=== PATIENT | female | born 1950 | race Caucasian/White ===

== ENCOUNTER 2025-03-22 09:15 | Outpatient (CLI) | payer MEDICARE, SELFPAY ==
--- NOTE | ~2025-03-22 | CT_ITS ---
EXAM/PROCEDURE: [email or web address] HISTORY: Preoperative planning COMPARISON: None available. TECHNIQUE: CT right knee for preoperative planning. Conformis protocol use. FINDINGS: Moderate to severe tricompartmental osteoarthritic appearing degenerative changes with no acute or aggressive bony lesions seen. Scattered strandy subcutaneous infiltrative changes are present most prevalent in the calf and ankle region. Small joint effusion in the right knee. No acute process seen in the visualized intrapelvic contents. Diverticular disease noted with no obvious acute diverticulitis within the field of view. IMPRESSION: Conformis protocol preoperative planning right knee CT demonstrating advanced osteoarthritic degenerative changes and small joint effusion of the right knee. Infiltrative changes in the lower hemithorax soft tissues may be associated with venous congestion. Correlate with clinical exam. Reviewed, dictated and finalized at location A. [facility] CLINICIAN IMPRESSION: Conformis protocol preoperative planning right knee CT demonstrating advanced o steoarthritic degenerative changes and small joint effusion of the right knee. Infiltrative changes in the lower hemithorax soft tissues may be associated wit h venous congestion. Correlate with clinical exam.
--- NOTE | 2025-03-22 09:34 | ECG_ITS ---
Test Date: 2025-03-22 09:43:17 Measurements Intervals [place] Rate: 79 P: 57 PA: 176 QRS: -31 QRSD: 101 T: 66 QT: 370 QTc: 424 Interpretive Statements SINUS RHYTHM LEFT AXIS DEVIATION POSSIBLE LEFT ATRIAL ENLARGEMENT INCOMPLETE RIGHT BUNDLE BRANCH BLOCK CANNOT R/O SEPTAL INFARCT, AGE INDETERMINATE BASELINE ARTIFACT- I, III, AVL, V2-V3, V5 ABNORMAL ECG No previous ECG available for comparison Electronically Signed On 03-22-2025 09:59:08 [employer] by Js Patricia D.O.
[2025-03-22 10:10] LABS: Hematocrit 40.0 % (37.0-47.0); Hemoglobin 12.9 g/dL (12.0-15.0)
[2025-03-22 10:43] LABS: Albumin Level 4.0 g/dL (3.5-5.1); Estimated Glomerular Filt Rate > 60; Glucose 126 mg/dL (65-110)
[2025-03-22 13:47] LABS: Hemoglobin A1C 6.7 % (<5.7)
== END 2025-03-22 09:16 | disposition home or self-care (01) ==
PROVIDERS: Visit Provider Orthopaedic Surgery
DX: Z01.818 Encounter for other preprocedural examination (principal); M17.11 Unilateral primary osteoarthritis, right knee; E11.9 Type 2 diabetes mellitus without complications; I10 Essential (primary) hypertension; D72.829 Elevated white blood cell count, unspecified
CPT/HCPCS: 36415; 73700; 82040; 82565; 82947; 83036; 85014; 85018; 93005

== ENCOUNTER 2025-04-08 10:15 | Outpatient (RCR) | payer MEDICARE, SELFPAY ==
--- NOTE | 2025-03-15 15:44 | PTOPEVAL1 ---
Assessment and note entered by Zhanna Monique, PT Evaluation Information Assessment Status Evaluation Diagnosis Unilat primary osteoarthritis R knee ICD-10 Condition Codes (PT) Pain in right knee M25.561,Weakness R53.1 Other ICD-10 Condition Codes ( stiffness right knee PT) Subjective Information Pre-hab for total knee replacement. CT next week and therapy first. Not scheduled Usually very active with walking 2-3 miles a day but is only able to go 1/2 mile due to pain Noticed walking in the water is much less painful Has an elastic sleeve for her knee Has tried heat but this didn't seem to help. REst helps and medication Reported Pain Level Pain Score 3: Self Report Assessment PT Clinical Summary Pt presents with right knee pain for pre-hab to prepare for her total knee replacement. She shoes decreased active and passive ROM today, decreased strength, and decreased flexibility, also reporting her pain is limiting her activity level. We initiated exercises today and provided her initial HEP, and discussed aquatics as an option for cardiovascular fitness without increasing knee irritation. Pt appears highly motivated and did well with her exercises. She will benefit from continued therapy to progress exercises in order to allow her the highest level of function, range, and strength to improve mobility and post- surgical outcomes. Plan of Care Interventions Electrical Stimulation,Hot Pack/Cold Pack,Manual Therapy,Neuro Re-education,Patient/Caregiver Education,Therapeutic Activities,Therapeutic Exercise,Self-Care/Home Management,Ultrasound, Other Other Interventions Taping PT Services Indicated Yes Treatment Frequency and 2-3x weekly x 16 visits Duration These treatments will address the objective and functional deficits as defined above. The patient will be advanced safely and appropriately in order for the patient to progress towards his/her prior level of function. Additional exercises will be introduced and as well as a comprehensive home exercise program upon discharge, if needed, ?to ensure carryover of functional gains achieved in the clinic. This treatment plan has been reviewed and agreement upon by the patient.
--- NOTE | 2025-03-15 15:45 | OPREHPOC ---
Outpatient Therapy Plan of Care This is a Multidisciplinary Plan of Care that may contain components documented by all disciplines (PT, OT, and ST.) PT Goal 1 Goal / Goal Update Pt will be independent in HEP Pt will verbalize understanding of diagnosis and prognosis Target Visit 8 PT Problem 2 PT Problem #2 Impaired Range of Motion PT Goal 1 Goal / Goal Update Pt will demonstrate passive ROM of 0-120 for optimal ROM for mobility of right knee Target Visit 8 PT Goal 2 Goal / Goal Update Pt will demonstrate active ROM of 0-120 for optimal functional use of knee. Target Visit 16 PT Problem 3 PT Problem #3 Impaired Strength PT Goal 1 Goal / Goal Update Pt will demonstrate 4+/5 strength quads and hamstrings for right knee support Target Visit 8 PT Goal 2 Goal / Goal Update Pt will demonstrate 5/5 strength quads and hamstrings for right knee support Target Visit 16
--- NOTE | 2025-04-08 17:15 | PTOPDC ---
Assessment and note entered by Zhanna Monique, PT Evaluation Information Assessment Status Discharge Diagnosis Unilat primary osteoarthritis R knee ICD-10 Condition Codes (PT) Pain in right knee M25.561,Weakness R53.1 Other ICD-10 Condition Codes ( stiffness right knee PT) Subjective Information Pt reports feeling improved after therapy. Reports feeling in the morning getting out of bed is a lot less stiff. Stairs are still uncomfortable but can do them now. Has about 15 stairs, going up is fine, but going down is still uncomfortable and is careful. Walking 2 blocks is ok, if wants to walk further is still difficult. Reported Pain Level Pain Score 1: Self Report Assessment PT Clinical Summary Pt has attended therapy consistently to prepare for total knee replacement. She gained passively ROM from 10-110 to 5-133 degrees, increased her strength of her quads and HS to 5/5 with resistive testing, and surprisingly had her pain reduce from greatest at 9/10 to 4/10. She also reports feeling more functional with less pain and less stiffness in the morning. She has met all goals for therapy other than has yet to achieve 0 degrees extension. Pt is independent in her current HEP to continue improving her ROM in this aspect to prepare for surgery. Thus patient is being discharged for completion of her program. Plan of Care PT Services Indicated No
== END 2025-04-09 11:36 | disposition home or self-care (01) ==
LOC: ANHHIPT 10:15
PROVIDERS: Visit Provider Orthopaedic Surgery
DX: M17.11 Unilateral primary osteoarthritis, right knee (principal); R53.1 Weakness
CPT/HCPCS: 97014; 97110; 97112; 97161; 97750; G0283